=== PATIENT | female | born 1955 | race Caucasian/White ===

== ENCOUNTER 2020-09-22 10:18 | Inpatient (IN) | payer OTHER ==
[2020-09-22] MEDS ORDERED: ACETAMINOPHEN 1000 MG/100 ML VIAL (NON FORMULARY) IVPB ONE (12:10)
[2020-09-22] MEDS ORDERED: ACETAMINOPHEN INJECTION 100 ML IVPB ONE (12:19)
[2020-09-22] MEDS ORDERED: LORazepam 2 MG/ML SDV VIAL IVPUSH ONE (12:44)
[2020-09-22 12:53] LABS: BASO % 0.4 % (0-2.0); EOS % 0.4 % (0-4.5); HEMATOCRIT 39.3 % (32.4-45.2); HEMOGLOBIN 13.4 GM/dL (10.7-15.3); LYMPH % 13.6 % (8-40); MCH 30.6 pg (25.7-33.7); MEAN CELL VOLUME 90.1 fl (80-96); MEAN PLT VOLUME 9.4 fl (7.5-11.1); MONO % 4.6 % (3.8-10.2); PLATELET COUNT 238 K/MM3 (134-434); RBC 4.36 M/mm3 (3.60-5.2); RDW 13.3 % (11.6-15.6); WHITE BLOOD COUNT 9.9 K/mm3 (4.0-10.0)
[2020-09-22 12:59] LABS: INR 0.91 (0.83-1.09); PROTHROMBIN TIME (PATIENT) 11.2 SEC (9.7-13.0)
[2020-09-22 13:01] LABS: ACTIVATED PTT 30.4 SECONDS (25.2-36.5)
[2020-09-22 13:20] LABS: ALBUMIN 3.9 g/dl (3.4-5.0); BLOOD UREA NITROGEN 21.5 mg/dL (7-18); CALCIUM 9.6 mg/dL (8.5-10.1)
[2020-09-22 13:24] LABS: CREATININE 0.7 mg/dL (0.55-1.3)
[2020-09-22 13:25] LABS: BILIRUBIN,TOTAL 0.4 mg/dL (0.2-1); TOT PROT 7.2 g/dl (6.4-8.2)
[2020-09-22] MEDS ORDERED: morphine CARPU-JECT 2 MG/1 ML DISP.SYRIN IVPUSH ONE (14:11)
[2020-09-22] MEDS ORDERED: MORPHINE SULFATE 2 MG/ML VIAL ONE (14:16)
[2020-09-22] MEDS ORDERED: LORazepam 2 MG/ML SDV VIAL ONE (15:10)
[2020-09-22] MEDS ORDERED: SUCCINYLCHOLINE CHLORIDE 200 MG/10 ML SYRINGE ONE (16:24)
[2020-09-22] MEDS ORDERED: PROPOFOL 20 ML ONE ×2 (16:24)
[2020-09-22] MEDS ORDERED: MIDAZOLAM HCL 2 MG/2 ML SINGLE DOSE VIAL ONE (16:24)
[2020-09-22] MEDS ORDERED: ACETAMINOPHEN 325 MG TABLET (FP) PO PRN ×2 (17:49→19:30)
[2020-09-22] MEDS ORDERED: ceFAZolin 2 GRAM PREMIX BAG IVPB ONE (17:55)
[2020-09-22] MEDS ORDERED: LACTATED RINGERS SOLUTION 1,000 ML IV SCH ×2 (18:00→18:15)
[2020-09-22] MEDS ORDERED: EPHEDRINE SULFATE/0.9% NACL/PF 50 MG/10 ML SYRINGE NR ONE (18:01)
[2020-09-22] MEDS ORDERED: ONDANSETRON 4 MG/2 ML VIAL IVPUSH PRN (18:02)
[2020-09-22] MEDS ORDERED: PROMETHAZINE HCL 25 MG/1 ML VIAL IVPUSH PRN (18:02)
[2020-09-22] MEDS ORDERED: MEPERIDINE HCL 25 MG/ML VIAL ONE (19:00)
[2020-09-22] MEDS ORDERED: MEPERIDINE HCL 25 MG/ML VIAL IVPUSH ONE (19:17)
[2020-09-22] MEDS: oxyCODONE HCL 5 MG TABLET PO PRN (22:27)
[2020-09-22] MEDS: DOCUSATE SODIUM 100 MG CAPSULE (FP) PO SCH (22:27)
[2020-09-23] MEDS: ACETAMINOPHEN 325 MG TABLET (FP) PO PRN ×2 (02:49→06:55)
[2020-09-23] MEDS: CEFAZOLIN 1 GM/D5W 1 GM/50 ML BAG IVPB SCH ×3 (02:56→16:59)
[2020-09-23 05:52] VITALS: BMI 26.2
[2020-09-23] MEDS: DOCUSATE SODIUM 100 MG CAPSULE (FP) PO SCH ×3 (06:52→22:17)
[2020-09-23] MEDS: oxyCODONE HCL 5 MG TABLET PO PRN ×3 (08:33→22:17)
[2020-09-23 08:45] LABS: BASO % 0.2 % (0-2.0); EOS % 0.3 % (0-4.5); HEMATOCRIT 31.7 % (32.4-45.2); HEMOGLOBIN 10.6 GM/dL (10.7-15.3); LYMPH % 8.3 % (8-40); MCH 30.5 pg (25.7-33.7); MCHC 33.6 g/dl (32.0-36.0); MEAN CELL VOLUME 90.9 fl (80-96); MEAN PLT VOLUME 9.3 fl (7.5-11.1); MONO % 3.2 % (3.8-10.2); PLATELET COUNT 198 K/MM3 (134-434); RBC 3.49 M/mm3 (3.60-5.2); RDW 13.4 % (11.6-15.6); WHITE BLOOD COUNT 12.3 K/mm3 (4.0-10.0)
[2020-09-23 08:47] LABS: INR 1.01 (0.83-1.09); PROTHROMBIN TIME (PATIENT) 12.2 SEC (9.7-13.0)
[2020-09-23 09:10] LABS: CALCIUM 9.2 mg/dL (8.5-10.1)
[2020-09-23 09:11] LABS: BLOOD UREA NITROGEN 15.6 mg/dL (7-18)
[2020-09-23 09:15] LABS: BILIRUBIN,TOTAL 0.7 mg/dL (0.2-1); PHOSPHOROUS 3.5 mg/dL (2.5-4.9); TOT PROT 5.7 g/dl (6.4-8.2)
[2020-09-23 09:16] LABS: CREATININE 0.7 mg/dL (0.55-1.3)
[2020-09-23 09:18] LABS: MAGNESIUM 2.1 mg/dL (1.8-2.4)
[2020-09-23] MEDS: ENOXAPARIN NA (PORCINE) 40 MG/0.4 ML DISP.SYRIN SQ SCH (09:27)
[2020-09-23] MEDS: CHOLECALCIFEROL (VIT D3) 1,000 UNIT (25 MCG) TABLET PO SCH (09:27)
[2020-09-24] MEDS: DOCUSATE SODIUM 100 MG CAPSULE (FP) PO SCH ×3 (05:16→21:00)
[2020-09-24] MEDS: ACETAMINOPHEN 325 MG TABLET (FP) PO PRN (05:16)
[2020-09-24 08:33] LABS: HEMATOCRIT 29.3 % (32.4-45.2); HEMOGLOBIN 10.1 GM/dL (10.7-15.3); MCH 31.3 pg (25.7-33.7); MCHC 34.5 g/dl (32.0-36.0); MEAN CELL VOLUME 90.5 fl (80-96); PLATELET COUNT 163 K/MM3 (134-434); RBC 3.24 M/mm3 (3.60-5.2); RDW 13.3 % (11.6-15.6)
[2020-09-24 08:46] LABS: BLOOD UREA NITROGEN 17.6 mg/dL (7-18); CALCIUM 8.9 mg/dL (8.5-10.1)
[2020-09-24 08:47] LABS: MAGNESIUM 2.1 mg/dL (1.8-2.4)
[2020-09-24 08:49] LABS: CREATININE 0.7 mg/dL (0.55-1.3); PHOSPHOROUS 2.4 mg/dL (2.5-4.9)
[2020-09-24] MEDS: CHOLECALCIFEROL (VIT D3) 1,000 UNIT (25 MCG) TABLET PO SCH (10:16)
[2020-09-24] MEDS: ENOXAPARIN NA (PORCINE) 40 MG/0.4 ML DISP.SYRIN SQ SCH (10:16)
[2020-09-24] MEDS: oxyCODONE HCL 5 MG TABLET PO PRN ×2 (10:53→20:45)
[2020-09-24] MEDS ORDERED: ACETAMINOPHEN 1000 MG/100 ML VIAL (NON FORMULARY) IVPB PRN (20:58)
[2020-09-25] MEDS: ZOLPIDEM TARTRATE 5 MG TABLET PO PRN ×2 (00:34→21:48)
[2020-09-25] MEDS: DOCUSATE SODIUM 100 MG CAPSULE (FP) PO SCH ×3 (06:08→21:48)
[2020-09-25 08:39] LABS: BASO % 0.6 % (0-2.0); EOS % 5.2 % (0-4.5); HEMATOCRIT 33.4 % (32.4-45.2); HEMOGLOBIN 11.5 GM/dL (10.7-15.3); LYMPH % 28.6 % (8-40); MCHC 34.4 g/dl (32.0-36.0); MEAN CELL VOLUME 90.2 fl (80-96); MEAN PLT VOLUME 9.1 fl (7.5-11.1); MONO % 7.3 % (3.8-10.2); NEUT % 58.3 % (42.8-82.8); PLATELET COUNT 215 K/MM3 (134-434); WHITE BLOOD COUNT 8.3 K/mm3 (4.0-10.0)
[2020-09-25] MEDS: oxyCODONE HCL 5 MG TABLET PO PRN (08:55)
[2020-09-25 08:58] LABS: CALCIUM 9.3 mg/dL (8.5-10.1)
[2020-09-25 08:59] LABS: ALBUMIN 3.1 g/dl (3.4-5.0)
[2020-09-25 09:01] LABS: CREATININE 0.7 mg/dL (0.55-1.3)
[2020-09-25] MEDS: CHOLECALCIFEROL (VIT D3) 1,000 UNIT (25 MCG) TABLET PO SCH (09:01)
[2020-09-25] MEDS: ENOXAPARIN NA (PORCINE) 40 MG/0.4 ML DISP.SYRIN SQ SCH (09:01)
[2020-09-25 09:02] LABS: BILIRUBIN,TOTAL 0.4 mg/dL (0.2-1); BLOOD UREA NITROGEN 13.4 mg/dL (7-18); TOT PROT 6.1 g/dl (6.4-8.2)
[2020-09-25] MEDS: ACETAMINOPHEN 500 MG TABLET (FP) PO PRN ×2 (15:32→21:51)
[2020-09-26] MEDS: DOCUSATE SODIUM 100 MG CAPSULE (FP) PO SCH ×3 (05:35→21:57)
[2020-09-26] MEDS: ACETAMINOPHEN 500 MG TABLET (FP) PO PRN ×3 (07:09→21:57)
[2020-09-26] MEDS: CHOLECALCIFEROL (VIT D3) 1,000 UNIT (25 MCG) TABLET PO SCH (09:44)
[2020-09-26] MEDS: ENOXAPARIN NA (PORCINE) 40 MG/0.4 ML DISP.SYRIN SQ SCH (09:44)
[2020-09-26] MEDS: ZOLPIDEM TARTRATE 5 MG TABLET PO PRN (21:57)
[2020-09-27] MEDS: DOCUSATE SODIUM 100 MG CAPSULE (FP) PO SCH ×3 (06:24→21:56)
[2020-09-27] MEDS: ACETAMINOPHEN 500 MG TABLET (FP) PO PRN ×3 (06:27→21:56)
[2020-09-27] MEDS: CHOLECALCIFEROL (VIT D3) 1,000 UNIT (25 MCG) TABLET PO SCH (09:49)
[2020-09-27] MEDS: ENOXAPARIN NA (PORCINE) 40 MG/0.4 ML DISP.SYRIN SQ SCH (09:49)
[2020-09-27] MEDS: ZOLPIDEM TARTRATE 5 MG TABLET PO PRN (21:56)
[2020-09-28] MEDS: DOCUSATE SODIUM 100 MG CAPSULE (FP) PO SCH ×2 (06:29→13:48)
[2020-09-28 09:00] LABS: BASO % 0.7 % (0-2.0); HEMATOCRIT 34.6 % (32.4-45.2); HEMOGLOBIN 11.8 GM/dL (10.7-15.3); LYMPH % 26.1 % (8-40); MCH 30.9 pg (25.7-33.7); MCHC 34.1 g/dl (32.0-36.0); MEAN CELL VOLUME 90.6 fl (80-96); MEAN PLT VOLUME 8.6 fl (7.5-11.1); NEUT % 64.2 % (42.8-82.8); PLATELET COUNT 264 K/MM3 (134-434); RBC 3.82 M/mm3 (3.60-5.2); RDW 13.3 % (11.6-15.6); WHITE BLOOD COUNT 7.1 K/mm3 (4.0-10.0)
[2020-09-28 09:23] LABS: CREATININE 0.6 mg/dL (0.55-1.3)
[2020-09-28 09:25] LABS: ALBUMIN 3.5 g/dl (3.4-5.0); BILIRUBIN,TOTAL 0.4 mg/dL (0.2-1); BLOOD UREA NITROGEN 16.3 mg/dL (7-18); CALCIUM 9.2 mg/dL (8.5-10.1); TOT PROT 6.8 g/dl (6.4-8.2)
[2020-09-28] MEDS: CHOLECALCIFEROL (VIT D3) 1,000 UNIT (25 MCG) TABLET PO SCH (09:45)
[2020-09-28] MEDS: ACETAMINOPHEN 500 MG TABLET (FP) PO PRN ×2 (09:45→18:21)
[2020-09-28] MEDS: ENOXAPARIN NA (PORCINE) 40 MG/0.4 ML DISP.SYRIN SQ SCH (09:45)
[2020-09-28 14:06] VITALS: BP 121/73; PULSE 87; TEMP 98.5
== END 2020-09-28 18:50 | disposition home or self-care (01) | DRG 481 ==
LOC: JERFT 10:18 → JER 10:18 → JERBED 12:49 → J6S 21:09
PROVIDERS: ADMIT Student in an Organized Health Care Education/Training Program; ATTEND Internal Medicine
PROC: 0QS704Z Reposition Left Upper Femur with Internal Fixation Device, Open Approach (ICD-10-PCS; principal; 2020-09-22 17:30)
DX: S72.002A Fracture of unspecified part of neck of left femur, initial encounter for closed fracture (principal); R71.0 Precipitous drop in hematocrit; M81.0 Age-related osteoporosis without current pathological fracture; M35.00 Sjogren syndrome, unspecified; W01.0XXA Fall on same level from slipping, tripping and stumbling without subsequent striking against object, initial encounter; Y93.89 Activity, other specified; Y92.89 Other specified places as the place of occurrence of the external cause; Y99.8 Other external cause status
CPT/HCPCS: 36415; 71045-TC-FY; 72192-TC; 73523-TC-FY; 73552-TC-LT-FY; 76000-TC-FY; 80048; 80053; 83735; 84100; 85025; 85027; 85610; 85730; 86850; 86900; 86901; 93005; 93010; 94760; 97116-GP; 97162-GP; 99285-25; C9803; J0131; U0003; U0005

== ENCOUNTER 2022-12-03 13:20 | Emergency (ER) | payer OTHER ==
[2022-12-03 13:26] VITALS: RESP 18; TEMP 98.9; BMI 25.4
[2022-12-03 15:41] VITALS: BP 150/114; PULSE 66
== END 2022-12-03 16:33 | disposition home or self-care (01) ==
LOC: JER 13:20
DX: S42.212A Unspecified displaced fracture of surgical neck of left humerus, initial encounter for closed fracture (principal); M25.512 Pain in left shoulder; W54.1XXA Struck by dog, initial encounter; Y93.K1 Activity, walking an animal
CPT/HCPCS: 73030-TC-LT-FY; 99283-25